=== PATIENT | female | born 1930 | race Caucasian/White ===

== ENCOUNTER 2017-06-12 08:28 | Outpatient (CLI) | payer MEDICARE, OTHER | END 2017-06-12 08:29 | disposition short-term general hospital (02) | LOC: EMS 08:28 | PROVIDERS: ATTEND Surgery | DX: R11.10 Vomiting, unspecified (principal); R06.2 Wheezing; W18.30XA Fall on same level, unspecified, initial encounter; Y92.003 Bedroom of unspecified non-institutional (private) residence as the place of occurrence of the external cause | CPT/HCPCS: A0425; A0427; A0888 ==

== ENCOUNTER 2017-09-20 14:00 | Outpatient (CLI) | payer MEDICARE, OTHER ==
--- NOTE | 2017-09-20 21:03 | CONSULTATION NOTE ---
Palliative Care Consultation - Referral Referring Provider: Dr. Omar Euceda Time of Visit: [id number] Referral setting: Home Referral Reason: Pancreatic Cancer/Goals of Care - Information Sources Records reviewed: Previous records reviewed (limited) History/Review of Systems obtained from: Patient Exam limitations: No limitations - History of Present Illness Brief History of Present Illness: This is an 87-year-old woman who has had a difficult last few months, most recently she presented to [facility] on 08/11/17 with increased abdominal pain and nausea and vomiting. 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 This was biopsied on 08/18/2017 and found to have be well differentiated adenocarcinoma. In discussion with the oncologist on her visit 09/14/2017 given her advanced age and fragility, decision was made not to pursue further treatment. She has had ongoing functional decline. 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 She was hospitalized in May, for a GI bleed including receiving 4 units of packed red blood cells, at that point in time she also ended up with aspiration pneumonia and C. difficile. She completed treatment for C. difficile in June 2017. She presents with fairly well controlled right sided abdominal pain, and Duragesic 25 mcg Transderm with Percocet for breakthrough pain. She has multiple medication allergies, and has known history of recurrent UTIs. She has had ongoing functional decline with weight loss, and poor appetite attributed to intermittent nausea as well as taste changes. Medical/Surgical History - Past Medical History Cardiovascular: reports: Hypertension Respiratory: reports: Pneumonia (apiration in 2017 during hospitalization ) Endocrine/Autoimmune: reports: None GI: reports: GI bleed (duodenal ulcer due to aspirin in 2016), C.difficile ( finished treatement in June on oral Vanco) : reports: Renal insuffiency (Stage III) Psych: reports: Depression Musculoskeletal: reports: Osteoarthritis (multiple joint replacements), Fatigue , Chronic back pain Derm: reports: Psoriasis (scalp) MRSA Hx?: No Other Past Medical History: marginal zone lymphoma 2010, treated with Rituxin in 2014 in remission - Past Surgical History General: reports: Cholecystectomy, Appendectomy, Other (bowel resection 99) Ortho: reports: Hip replacement, Knee replacement, Rotator cuff repair, Spine surgery HEENT: reports: Cataracts Derm: reports: Skin cancer surgery - Substance History Use: Uses substance without health or social issues: NONE Abuse: Recurrent use of substance despite neg consequences: NONE Social History - Living Situation Living arrangement: At home Living Situation: With family (Patient's granddaughter Isabella lives with patient , provides oversight and care. She lives in the basement. Her son Armani is present for visit today, she has another daughter Valerie who lives in [place]. She is lost her 10 years ago due to complications of MRSA.) Family History - Family History Family History: Mother: (95 complications GI bleed), Father: , [place], Sister: Alive and Well Medications/Allergies - Medications Home Medications: Ambulatory Orders Medication Instructions Recorded Confirmed Calcium Carbonate [[id number]] 500 mg PO DAILY 09/20/17 09/20/17 Felodipine [Felodipine ER] 10 mg PO DAILY 09/20/17 09/20/17 Metoprolol Tartrate 25 mg PO DAILY 09/20/17 09/20/17 Multivitamin W/Minerals [Theragran 1 tab PO DAILY 09/20/17 09/20/17 M] Ondansetron [Ondansetron Odt] 4 mg PO PRN PRN 09/20/17 09/20/17 Pantoprazole [Protonix] 40 mg PO BID 09/20/17 09/20/17 Polyethylene Glycol 3350 [Miralax] 17 gm PO DAILY 09/20/17 09/20/17 Potassium Chloride 20 meq PO DAILY 09/20/17 09/20/17 Terazosin [Hytrin] 5 mg PO DAILY 09/20/17 09/20/17 Ubidecarenone [Co Q-10] 30 mg PO DAILY 09/20/17 09/20/17 Vit A/Vit C/Vit E/Zinc/Copper 1 cap PO DAILY 09/20/17 09/20/17 [Preservision Areds Softgel] Vitamin D3/Folic Acid [Roxifol-D 500 units PO DAILY 09/20/17 09/20/17 Tablet] fentaNYL [Fentanyl 25mcg patch] 25 mcg TOP DAILY 09/20/17 09/20/17 oxyCODONE/ACET 5/325 [Percocet 5 1 tab PO Q4HR PRN 09/20/17 09/20/17 mg/325 mg] - Allergies Allergies/Adverse Reactions: Allergies Allergy/AdvReac Type Severity Reaction Status Date / Time levofloxacin Allergy Severe Unknown Verified 09/20/17 21:31 nitrofurantoin Allergy Severe Rash Verified 09/20/17 21:32 cephalexin Allergy Unknown Verified 09/20/17 21:28 clarithromycin Allergy Unknown Verified 09/20/17 21:29 erythromycin base Allergy Unknown Verified 09/20/17 21:29 Penicillins Allergy Itching Verified 09/20/17 21:26 prednisone Allergy Rash Verified 09/20/17 21:28 procaine Allergy Unknown Verified 09/20/17 21:30 Tetracyclines Allergy Unknown Verified 09/20/17 21:30 ciprofloxacin AdvReac Nausea Verified 09/20/17 21:33 epinephrine AdvReac Headache Verified 09/20/17 21:33 hydromorphone AdvReac Emesis Verified 09/20/17 21:34 latex AdvReac Itching Verified 09/20/17 21:27 morphine AdvReac Nausea Verified 09/20/17 21:34 ofloxacin AdvReac Nausea Verified 09/20/17 21:35 Review of Systems - Constitutional Constitutional: reports: Fatigue, Poor appetite, Night sweats, Weight loss (162 from baseline a few months ago of 180) - Eyes Eyes: reports: Vision loss, Corrective lenses - Cardiovascular Cardiovascular: reports: Lightheadedness, Decr. exercise tolerance - Respiratory Respiratory: reports: SOB with exertion - Gastrointestinal Gastrointestinal: reports: Constipation, Nausea, Bloating, Poor appetite, Early satiety - Genitourinary Genitourinary: reports: Incontinence (wears pads) - Musculoskeletal Musculoskeletal: reports: Muscle pain, Back pain, Muscle aches, Stiffness, Muscle weakness - Integumentary Integumentary: reports: Dryness - Neurological Neurological: reports: General weakness - Psychiatric Psychiatric: reports: Depression - Endocrine Endocrine: denies: Diabetes type 2, Hypothyroidism - Hematologic/Lymphatic Hematologic/Lymphatic: reports: Anemia (had blood transfusion in May for GI bleed), Recurrent infections (utis) - All Other Systems All Other Systems: reports: Reviewed and negative Physical Exam - Vital Signs Temperature: 97.9 C Pulse Rate: 64 Respiratory Rate: 18 O2 Saturation: 98 (ra @ rest) Blood Pressure: 112/52 - Physical Exam General Appearance: positive: Mild distress Eyes Bilateral: positive: Normal inspection ENT: positive: No signs of dehydration Neck: positive: No JVD, Trachea midline Cardiovascular: positive: Regular rate & rhythm Respiratory: positive: Diminished in bases Abdomen: positive: Soft, Abnml bowel sounds (hyperactive), Tenderness (right sided tenderness with only slight palpation) Skin: positive: Pallor, Dryness Extremities: positive: No pedal edema Neurologic/Psychiatric: positive: Oriented x3, Weakness, Depressed mood/affect, Flat affect Palliative Care - POLST Patient has POLST: Yes POLST Status: DNR, Comfort Measures (updated with new goals) Pain: Pain worsening, Location (right side of abdomen; currently controlled on fentanyl 25 mcg every 72 hours; has percocet for BTP; needs occasionally at night) Tiredness/Fatigue: Severe (7-10) Drowsiness/Sedation: None Nausea: Mild (1-3) (ondansetron intermittently few times a week) Depression: Mild (1-3) Anxiety: Mild (1-3) Dyspnea: Mild (1-3) Anorexia: Moderate (4-6), Weight loss Sleep: Variable sleep pattern Constipation: Yes, Opoid induced, Unmanaged Feelings of wellbeing/Perceived Quality of Life: Fair, Worsening Performance Status: Patient with increasing fatigue, able to only ambulate short distances. She is independent in her bathing though probably could use some assistance. She is not eating much, her family is providing support for meal prep.She does spend most of her time in recliner, I would probably put her at a PPS of 40% - Palliative Care Discussion: Patient's understanding is that she does have incurable stage IV pancreatic cancer, with metastases to the lung and liver. Her understanding is that treatment would not be curative in nature, and actually cause her more complications. I would concur with this given her advanced age and underlying frailty. She does appear somewhat resigned to this, she did talk with a hospice software support representative at the cancer center, but her understanding was that she would be able to see her doctors. Patient's goals are comfort measures only, we did update her [facility] to reflect this. I did discuss with her at length given her poor prognosis and her goals of comfort and not wanting to be rehospitalized hospice probably was an appropriate service at this point in time. Some of her misunderstanding came from her experience in the past, her 10 years ago had hospice support but this was somewhat crisis oriented and the context he had complications from her MRSA infection and was only on service for less than a week. Currently her granddaughter Isabella, is living with her due to complications regarding going through a divorce. Patient does appear somewhat worried by family dynamics, also her son Onelia who is present for the visit is due to have knee surgery next week. She does admit to depressive symptoms, though she does appear somewhat pragmatic in her approach. Counseling regarding palliative versus possible hospice care, the more than happy to provide her support did recommend when patient ready to transition to hospice so as not crisis oriented as it was with her . She has had contact with hospice of [facility], will look like to pursue a referral with them. She was also counseled [facility] hospice also is available to her if wanted Results - Lab Results Lab results reviewed: Yes Impression and Recommendations - Palliative Care Impression: This is a frail 87-year-old who presents with stage IV pancreatic cancer with metastases to liver and lung, with ongoing functional decline. She does have fairly high symptom burden of pain though currently controlled, weight loss, early satiety, and overall generalized weakness. She does have some intermittent shortness of breath. She is somewhat resigned, and is not pursuing further treatment. Given her poor prognosis and focus on comfort measures, would recommend patient transitioning to hospice when she is in agreement. Recommendations/Counseling Done: 1. Pain of neoplastic origin. Patient currently managed on Duragesic 25 mcg patch, she is only occasionally using her Percocet for breakthrough pain and appears to be tolerating this without any difficulty at this point in time she denies need for further prescriptions this is confirmed with her granddaughter Isabella who came at the end of the visit. 2. Constipation secondary to opioid use. Patient's only been using Colace, counseling regarding use of MiraLAX instructed to start with 17 g daily, if to lose decrease to half capful daily and if no BM in 48 hours increase to twice daily. She has been instructed to use this in 4 ounces of fluids. 3. Depression. Patient does present with depressive symptoms, she is feeling somewhat overwhelmed not only by her current diagnosis but her family situation as well. She does feel somewhat "off culture" since her 10 years ago, son present at visit does appear to be some family dynamics that are complicating patient's current situation. 4. Muscle weakness. This is multifactorial in origin, including weight loss, sedentary status, and progressive disease. Patient would most likely benefit from bathing assist as well as ongoing adaptive equipment as indicated. 5. Advanced care planning. Did review the hospice benefit, in the context of patient's concern about not seeing her physicians. When drilled down to specifically what she was hoping for, she would like to say goodbye to Dr. Diane, she is scheduled to see him next week on 09/28. In speaking with the granddaughter Isabella, it is more difficult for her to get to appointments and would benefit from receiving her care from the hospice team at home. Agreed I would recheck to hospice regarding pending admit, palliative care to follow but given her goals, completion of the [facility], she is hospice appropriate. Did review with family and patient, if would like to pursue hospice admit sooner to give me a call and I will facilitate that referral. 6. Hypotension. Patient's blood pressure was 112/52 she is on multiple medications, will discontinue the hydrochlorothiazide for now. Requested that she keep her blood pressure daily until a new to decrease her medications as appropriate as there is a most likely adding to her element of fatigue and weakness Time Spent: 75 minutes with greater than 50% of this done in counseling regarding advanced care planning, can bleeding the [facility], reviewing symptom management and anticipatory guidance
== END 2017-09-20 14:01 | disposition home or self-care (01) ==
LOC: PC 14:00
PROVIDERS: ATTEND Nurse Practitioner Adult Health
DX: Z51.5 Encounter for palliative care (principal); G89.3 Neoplasm related pain (acute) (chronic); C25.9 Malignant neoplasm of pancreas, unspecified; C78.00 Secondary malignant neoplasm of unspecified lung; C78.7 Secondary malignant neoplasm of liver and intrahepatic bile duct; K59.03 Drug induced constipation; T40.2X5A Adverse effect of other opioids, initial encounter; F32.9 Major depressive disorder, single episode, unspecified; M62.81 Muscle weakness (generalized); I95.9 Hypotension, unspecified; I10 Essential (primary) hypertension; N28.9 Disorder of kidney and ureter, unspecified; Z85.72 Personal history of non-Hodgkin lymphomas; Z79.891 Long term (current) use of opiate analgesic; R63.0 Anorexia; F41.9 Anxiety disorder, unspecified; Z66 Do not resuscitate
CPT/HCPCS: 99345

== ENCOUNTER 2017-10-05 13:15 | Outpatient (CLI) | payer MEDICARE, OTHER ==
--- NOTE | 2017-10-05 19:57 | CONSULTATION NOTE ---
Palliative Care Follow Up - Referral Referring Provider: Dr. Tapia Time of Visit: 8840-0188 Referral setting: Home (It is a taxing considerable effort for the patient to leave the home, also to facilitate family conference.) Referral Reason: Metastatic pancreatic cancer with mets to lung/liver/Goals of Care - Information Sources Records reviewed: Previous records reviewed History/Review of Systems obtained from: Patient, Family Exam limitations: No limitations - History of Present Illness Update Brief HPI Update: Please see visit date 09/20 for initial HPI. 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 She has been with anorexia, weight loss, right abdominal pain controlled with Transderm fentanyl 25 mcg patch, and intermittent constipation. She has been somewhat ambivalent about whether to further pursue treatment. She had pretty much made up her mind but wanted to meet with her regular oncologist to set whom she had been followed with for her stage IV marginal zone lymphoma to get his opinion and to essentially say her goodbyes. At that point in time he did offer her chemotherapy that would be gemcitabine and erlotinib.She remains still reticent to move forward, and she has had increasing health problems. She did present on 10/03 with what it sounds like TIA, prolonged time where she is unable to move her arms or legs was pretty much stuck on the chair. Finally as things resolve she was convinced by her granddaughter to go into the emergency room. At that point in time they did do a head CT with contrast and found no acute intracranial abnormalities, gave her 2 L, and she was diagnosed with UTI. Given the length and description of her symptoms I suspect it is more than attributed to her UTI. She has not had any recurrence of this. She was put on Septra, patient does have multiple antibiotic allergies and is awaiting the ACUTE CARE NURSING ASSISTANT from the ER to confirm this is appropriate medication. She was asymptomatic so she is and clear if this is working. She also had presented with some dizziness with turning of her head, she does have some residual vertigo with this and but has not worsened. Symptom burden she continues with no appetite, she feels quite washed out, she is having functional decline is looking forward to getting assistance with bathing, she does feel like her pain is well controlled, I am she is taking Ensure 1-2 times a day as well as puddings but given the description from Dr. castaneda that she is certainly not nutritionally supported. 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 She does not have much energy and has not been able to participate in things that usually bring her estella. Her granddaughter and her 2 greatgranroberto, Currently living with them in the basement. Isabella is providing care and is currently going to difficult divorce.) Medications/Allergies - Medications Home Medications: Ambulatory Orders Medication Instructions Recorded Confirmed Calcium Carbonate [[id number]] 500 mg PO DAILY 09/20/17 10/05/17 Felodipine [Felodipine ER] 10 mg PO DAILY 09/20/17 10/05/17 Metoprolol Tartrate 12.5 mg PO DAILY 09/20/17 10/05/17 Multivitamin W/Minerals [Theragran 1 tab PO DAILY 09/20/17 10/05/17 M] Ondansetron [Ondansetron Odt] 4 mg PO PRN PRN 09/20/17 10/05/17 Pantoprazole [Protonix] 40 mg PO BID 09/20/17 10/05/17 Polyethylene Glycol 3350 [Miralax] 17 gm PO DAILY 09/20/17 10/05/17 Potassium Chloride 20 meq PO DAILY 09/20/17 10/05/17 Terazosin [Hytrin] 5 mg PO DAILY 09/20/17 10/05/17 Ubidecarenone [Co Q-10] 30 mg PO DAILY 09/20/17 10/05/17 Vit A/Vit C/Vit E/Zinc/Copper 1 cap PO DAILY 09/20/17 10/05/17 [Preservision Areds Softgel] Vitamin D3/Folic Acid [Roxifol-D 500 units PO DAILY 09/20/17 10/05/17 Tablet] fentaNYL [Fentanyl 25mcg patch] 25 mcg TOP DAILY 09/20/17 10/05/17 oxyCODONE/ACET 5/325 [Percocet 5 1 tab PO Q4HR PRN 09/20/17 10/05/17 mg/325 mg] - Allergies Allergies/Adverse Reactions: Allergies Allergy/AdvReac Type Severity Reaction Status Date / Time levofloxacin Allergy Severe Unknown Verified 09/20/17 21:31 nitrofurantoin Allergy Severe Rash Verified 09/20/17 21:32 cephalexin Allergy Unknown Verified 09/20/17 21:28 clarithromycin Allergy Unknown Verified 09/20/17 21:29 erythromycin base Allergy Unknown Verified 09/20/17 21:29 Penicillins Allergy Itching Verified 09/20/17 21:26 prednisone Allergy Rash Verified 09/20/17 21:28 procaine Allergy Unknown Verified 09/20/17 21:30 Tetracyclines Allergy Unknown Verified 09/20/17 21:30 ciprofloxacin AdvReac Nausea Verified 09/20/17 21:33 epinephrine AdvReac Headache Verified 09/20/17 21:33 hydromorphone AdvReac Emesis Verified 09/20/17 21:34 latex AdvReac Itching Verified 09/20/17 21:27 morphine AdvReac Nausea Verified 09/20/17 21:34 ofloxacin AdvReac Nausea Verified 09/20/17 21:35 Review of Systems - Constitutional Constitutional: reports: Fatigue, Poor appetite, Night sweats, Weight loss (163 at oncologists) - Ears, Nose & Throat Ears, Nose & Throat: reports: Postnasal drainage, Dry mouth - Cardiovascular Cardiovascular: reports: Exertional dyspnea, Decr. exercise tolerance. denies: Chest pain - Respiratory Respiratory: reports: SOB with exertion - Gastrointestinal Gastrointestinal: reports: Poor appetite, Early satiety. denies: Constipation, Nausea - Genitourinary Genitourinary: denies: Dysuria - Musculoskeletal Musculoskeletal: reports: Stiffness, Muscle weakness - Integumentary Integumentary: reports: Dryness - Neurological Neurological: reports: General weakness, Dizziness (intermittent with moving head back and forth) - Psychiatric Psychiatric: reports: Depression, Anxiety - Endocrine Endocrine: denies: Diabetes type 2, Hypothyroidism - Hematologic/Lymphatic Hematologic/Lymphatic: reports: Anemia (35.2), Recurrent infections (history of UTIss did not feel she was symptomatic) - All Other Systems All Other Systems: reports: Reviewed and negative Physical Exam - Vital Signs Temperature: 97.9 C Pulse Rate: 54 (recorded 41 this am) Respiratory Rate: 18 O2 Saturation: 97 (ra@ rest) Blood Pressure: 112/58 - Physical Exam General Appearance: positive: No acute distress Eyes Bilateral: positive: Normal inspection ENT: positive: No signs of dehydration Neck: positive: Trachea midline Cardiovascular: positive: Irregularly irregular Respiratory: positive: Diminished in bases Abdomen: positive: Nml bowel sounds, Tenderness (right upper quadrant) Skin: positive: Pallor, Dryness Extremities: positive: No pedal edema Neurologic/Psychiatric: positive: Oriented x3, Depressed mood/affect, Flat affect Palliative Care - POLST Patient has POLST: Yes POLST Status: DNR, Comfort Measures Pain: Pain unchanged, Location (right quadrant; controlled currently on fentanyl 25 mcg rare use of btp) Tiredness/Fatigue: Severe (7-10) Drowsiness/Sedation: Mild (1-3) Nausea: None Depression: Mild (1-3) Anxiety: Mild (1-3) Dyspnea: Mild (1-3) Anorexia: Weight loss Sleep: Variable sleep pattern Constipation: Yes, Opoid induced, Managed Feelings of wellbeing/Perceived Quality of Life: Fair, Worsening Performance Status: And continues to weaken. She has recovered from her "spell" he is able to ambulate short distances but is still fatiguing quite easily. She is looking forward to having some assistance with bathing, as this is I am very taxing for her overall. I would put her at a PPS of 50% at this point in time she does spend most of the time in her recliner, it is really quite cute her great grandson climbs in there with her and likes to play fish - Palliative Care Discussion: Met with Isabella her granddaughter and caregiver, Armani her son, and patient. Reviewed what she had heard from Dr. Diane, she remains again quite reticent. We did discuss in the context of his note that acknowledge that she needed to be doing well nutritionally and also functionally to be able to tolerate treatment, she has declined even over the last 2 weeks since I have seen her as far as her strength, appetite, and now has had an ED visit. She has spoken with her primary care provider Dr. marrero tell, she has had input from Dr. Tapia, her son does not want to wait in our reports "give his opinion". Her granddaughter Isabella is very concerned about her having any further side effects or decline from treatment, and would like her to spend the rest of her days as comfortable as possible. In the context of this we discussed the role of hospice, living into you , and providing support so she does not need to go to the hospital. She had delayed going for several hours this is very difficult for her granddaughter she did not know what to do, and thus the support of the hospice team will be [place]. Anticipatory guidance was provided for expected decline, increased dependence and needs, as well as services and equipment that could be set applied by hospice. After weighing benefits and burdens patient did decide to move forward with supportive care and transition to hospice.This was a great relief to her granddaughter. Results - Lab Results Lab results reviewed: Yes Lab and Imaging Results: 10/03 labs from ED Na 134; K 4.4; BUN 20; creat 1.1;total protien 5.2 alb. 3.1; liver enzymes okay hgb 12.1; WBC 6.9 Impression and Recommendations - Palliative Care Impression: This is an 87-year-old woman who continues to have functional decline, presents with stage IV pancreatic cancer with metastases to liver and lung. Her pain is currently controlled, but continues with anorexia, early satiety, and overall generalized weakness. After weighing benefits and burdens in counseling with family, patient has decided to transition to hospice. Recommendations/Counseling Done: 1. Pain of neoplastic origin. Patient continues to be controlled on Duragesic 25 mcg patch, she is only needing occasionally her Percocet for breakthrough pain. She is quite worried about escalating pain, reassured she is on a very low dose of her current pain medication with ability to titrate up as needed. She is currently satisfied with her current regimen. 2. Constipation secondary to opioid use. She has started the MiraLAX daily this is working well. She denies any further problems with this. 3. Possible TIA. Given the patient's description of the symptoms, with prolonged inability to move her extremities and difficulty getting off the couch. This did resolve enough for her to manually get in the car. She was diagnosed with a UTI, she is at high risk though for hypercoagulability with her pancreatic diagnosis. I 4. Hypotension patient's blood pressure remains somewhat low, she has tolerated being off the hydrochlorothiazide. She has not been taking her blood pressure in a regular basis but in reviewing she has a fairly low pulse rate. She was started on metoprolol actually recently after hospitalization for a GI bleed. Given her current symptoms I will decrease her to 12.5 mg in the a.m., most of her fatigue and dizziness is in the a.m. we will discontinue the evening dose. She had they are to hold if her pulse is less than 60. Also left instructions to hold the felodipine if her blood pressure is less than 100. As she will benefit from continuing titrating off her medications as indicated. 5. Depression. Patient does present with depressive symptoms somewhat of a flat affect as she has been feeling quite overwhelmed not only with her decision but also recent family visiting. She will benefit from further psychosocial support of the hospice team 6. Advanced care planning. PRINCE KIM is completed last visit with goals of comfort; after family conference has decided transition to hospice. Given her functional decline, and ongoing challenges with nutritional intake I suspect this is a good decision for her. I did follow up with hospice of the [place] , they are not available for at least 7-10 days, hospice [facility] was available on Tuesday. They did choose [facility] related to availability. I reviewed the hospice benefit and was done. We did discuss last time with her they did not really get a chance to experience the full benefit of the team, encouraged her build relationship. Isabella her granddaughter, is looking forward to the support, and INDUSTRIAL EDUCATION INSTRUCTOR support/direction for how to support her children in the home. Time Spent: 45 minutes with greater than 50% of this done in counseling regarding weighing benefits of burdens of treatment versus hospice and supportive care, reviewing symptom management and titrating medications as well as anticipatory guidance. Message left that both Dr. Mancia and Dr. Diane's office regarding patient's decision.
== END 2017-10-05 13:16 | disposition home or self-care (01) ==
LOC: PC 13:15
PROVIDERS: ATTEND Nurse Practitioner Adult Health
DX: Z51.5 Encounter for palliative care (principal); G89.3 Neoplasm related pain (acute) (chronic); C25.9 Malignant neoplasm of pancreas, unspecified; C78.7 Secondary malignant neoplasm of liver and intrahepatic bile duct; C78.00 Secondary malignant neoplasm of unspecified lung; K59.03 Drug induced constipation; T40.2X5D Adverse effect of other opioids, subsequent encounter; I95.9 Hypotension, unspecified; F32.9 Major depressive disorder, single episode, unspecified; R63.4 Abnormal weight loss; R10.9 Unspecified abdominal pain; Z79.891 Long term (current) use of opiate analgesic; M62.81 Muscle weakness (generalized); F41.9 Anxiety disorder, unspecified; R68.81 Early satiety; R63.0 Anorexia; Z66 Do not resuscitate
CPT/HCPCS: 99349